=== PATIENT | male | born 1960 | race Two or more races ===

== ENCOUNTER 2023-11-03 02:54 | Inpatient (IN) | payer OTHER ==
[~2023-11-03] VITALS: Ht 177.8 cm; Wt 98.2 kg
[2023-11-03 04:54] LABS: BASOPHILS % (AUTO) 0.4 % (0.0-2.0); EOSINOPHILS % (AUTO) 0 % (1.0-6.0); HEMOGLOBIN 11.1 g/dL (13.5-17.5); LYMPHOCYTES # (AUTO) 1.3 K/uL (1.0-4.8); LYMPHOCYTES % (AUTO) 18.6 % (22.0-44.0); MEAN CORPUSCULAR HEMOGLOBIN 28.6 pg (26.0-34.0); MEAN CORPUSCULAR HGB CONC 34.7 G/dL (31.0-37.0); MEAN CORPUSCULAR VOLUME 82 fL (80-100); MONOCYTES # (AUTO) 0.6 K/uL (0.1-1.0); MONOCYTES % (AUTO) 8.8 % (2.0-9.0); NEUTROPHILS # (AUTO) 5.1 K/uL (1.8-7.7); NEUTROPHILS % (AUTO) 72.2 % (40.0-70.0); PLATELET COUNT (AUTO) 169 K/uL (150-450); RED BLOOD CELL COUNT(AUTO) 3.89 MIL/uL (4.50-5.90); RED CELL DISTRIBUTION WIDTH 14.8 % (11.5-14.5); WHITE BLOOD COUNT (AUTO) 7.1 K/uL (4.5-11.0)
[2023-11-03 05:07] LABS: LACTIC ACID 0.7 mmol/L (0.4-2.0); TROPONIN I-HIGH SENSITIVITY 6 ng/L (<76)
[2023-11-03 05:10] LABS: AMMONIA < 10 umol/L (11-32)
[2023-11-03 05:54] LABS: ANION GAP 11 mmol/L (8-16); CALCIUM, TOTAL 8.7 mg/dL (8.8-10.5); CARBON DIOXIDE 25 mmol/L (22-29); CHLORIDE 100 mmol/L (98-107); CREATININE 0.99 mg/dL (0.60-1.30); GLOMERULAR FILTR. RATE CALC > 60 mL/min (>60); GLUCOSE,RANDOM 212 mg/dL (70-110); POTASSIUM 3.2 mmol/L (3.5-5.1); SODIUM SERUM 136 mmol/L (136-145); UREA NITROGEN, BLOOD 19 mg/dL (7-18)
[2023-11-03] MEDS: POTASSIUM CHLORIDE 20 MEQ ER TABLET PO ONE (06:20)
[2023-11-03] MEDS: ACETAMINOPHEN 325 MG TABLET PO ONE (06:21)
[2023-11-03] MEDS: KETOROLAC TROMETHAMINE 30 MG/ML VIAL IVP ONE (06:57)
[2023-11-03 07:19] LABS: APPEARANCE,URINE CLEAR (CLEAR); BILIRUBIN,URINE NEGATIVE (NEGATIVE); COLOR,URINE YELLOW (YELLOW); GLUCOSE, URINE (UA) TRACE mg/dL (NEGATIVE); KETONES,URINE 40-60 mg/dL (NEGATIVE); LEUKOCYTE ESTERASE ,URINE LARGE (NEGATIVE); NITRATE,URINE NEGATIVE (NEGATIVE); OCCULT BLOOD,URINE TRACE (NEGATIVE); PROTEIN,URINE 30-70 mg/dL (NEGATIVE); SPECIFIC GRAVITIY, URINE 1.025 (1.003-1.030); UROBILINOGEN,URINE <=1.0 mg/dL (<=1.0)
[2023-11-03 07:26] LABS: ALCOHOL, URINE DRUG SCREEN NEGATIVE (NEGATIVE); AMPHET/METH SCREEN,URINE NEGATIVE (NEGATIVE); BARBITURATE SCREEN, URINE NEGATIVE (NEGATIVE); BENZODIAZEPINES SCREEN,URINE NEGATIVE (NEGATIVE); CANNABINOID SCREEN,URINE NEGATIVE (NEGATIVE); COCAINE SCREEN,URINE NEGATIVE (NEGATIVE); METHADONE SCREEN, URINE NEGATIVE (NEGATIVE); OPIATE SCREEN,URINE NEGATIVE (NEGATIVE); PHENCYCLIDINE SCREEN,URINE NEGATIVE (NEGATIVE)
[2023-11-03 07:34] LABS: BACTERIA,URINE Moderate /HPF (None Seen); RBC,URINE 0-2 /HPF (0-2); WBC,URINE >100 /HPF (0-5)
[2023-11-03 11:46] VITALS: BP 153/78; PULSE 80; RESP 19; TEMP 98.4; O2SAT 96
[2023-11-03] MEDS ORDERED: LOSA-382 PO (16:18)
[2023-11-03] MEDS ORDERED: EMPA25TA3 PO (16:18)
[2023-11-03] MEDS ORDERED: INSU100V37 SQ (16:18)
[2023-11-03] MEDS ORDERED: AMLO-258 PO (16:18)
[2023-11-03] MEDS ORDERED: METF-1211 PO (16:18)
[2023-11-03] MEDS ORDERED: DOCU-385 PO (16:18)
[2023-11-03] MEDS ORDERED: FOLI-130 PO (16:18)
[2023-11-03] MEDS ORDERED: DULA1.5P SQ (16:18)
[2023-11-03] MEDS ORDERED: BRIM5DRO9 OU (16:18)
[2023-11-03] MEDS ORDERED: LACT10SO10 PO (16:18)
[2023-11-03] MEDS ORDERED: XALA2.5OS OU (16:18)
[2023-11-03] MEDS ORDERED: FURO20 PO (16:18)
[2023-11-03] MEDS ORDERED: ACET650S24 PR (16:18)
[2023-11-03 20:10] VITALS: BP 163/87; PULSE 93; RESP 16; TEMP 97.5; O2SAT 97
[2023-11-03] MEDS: ACETAMINOPHEN 325 MG TABLET PO PRN (20:39)
[2023-11-03] MEDS: INSULIN LISPRO 100 UNITS/ML SQ PRN (21:53)
[2023-11-03] MEDS ORDERED: DEXTROSE 50%-WATER 25 GM/50 ML SYRINGE IVP PRN (22:00)
[2023-11-04 03:20] LABS: GLUCOMETER DEV NAME(LOC) 6S.2; GLUCOSE,POINT OF CARE 201 MG/DL (70-110)
[2023-11-04 04:30] VITALS: BP 159/91; PULSE 98; RESP 16; TEMP 97.5; O2SAT 96
[2023-11-04 07:00] LABS: GLUCOMETER DEV NAME(LOC) 6S.2; GLUCOSE,POINT OF CARE 206 MG/DL (70-110)
[2023-11-04 10:27] VITALS: BP 161/92; PULSE 86; RESP 18; TEMP 97.5; O2SAT 98
[2023-11-04] MEDS ORDERED: ACETAMINOPHEN 650 MG RECTAL SUPPOSITORY PR PRN (12:45)
[2023-11-04] MEDS ORDERED: MORPHINE SULFATE 2 MG/ML SYRINGE IVP PRN (12:45)
[2023-11-04] MEDS ORDERED: ALBUTEROL SULFATE 2.5 MG/0.5 ML NEB SOLUTION NEB PRN (12:45)
[2023-11-04] MEDS ORDERED: BISACODYL 10 MG RECTAL RECTAL SUPPOSITORY PR PRN (12:45)
[2023-11-04] MEDS ORDERED: ZOLPIDEM TARTRATE 5 MG TABLET PO PRN (12:45)
[2023-11-04] MEDS ORDERED: ACETAMINOPHEN 325 MG TABLET PO PRN (12:45)
[2023-11-04] MEDS ORDERED: POTASSIUM CHL 10 MEQ/WATER 50 ML IV PRN (12:45)
[2023-11-04] MEDS ORDERED: MAGNESIUM HYDROXIDE SUSPENSION 30 ML UDCUP PO PRN (12:45)
[2023-11-04] MEDS ORDERED: FUROSEMIDE 40 MG/4 ML VIAL IVP ONE (12:45)
[2023-11-04] MEDS ORDERED: ONDANSETRON HCL 4 MG/2 ML VIAL IVP PRN (12:45)
[2023-11-04] MEDS ORDERED: IPRATROPIUM BROMIDE 0.5 MG/2.5 ML NEB SOLUTION NEB PRN (12:45)
[2023-11-04 12:46] LABS: GLUCOMETER DEV NAME(LOC) 6S.2; GLUCOSE,POINT OF CARE 204 MG/DL (70-110)
[2023-11-04] MEDS: AmLODIPine BESYLATE 10 MG TABLET PO SCH (14:09)
[2023-11-04] MEDS: FUROSEMIDE 40 MG TABLET PO ONE (14:09)
[2023-11-04] MEDS: POTASSIUM CHLORIDE 20 MEQ ER TABLET PO PRN (14:10)
[2023-11-04] MEDS: HEPARIN SODIUM,PORCINE 5,000 UNITS/ML VIAL SQ SCH (16:41)
[2023-11-04 17:51] LABS: GLUCOMETER DEV NAME(LOC) 6S.2; GLUCOSE,POINT OF CARE 183 MG/DL (70-110)
[2023-11-04] MEDS: MetFORMIN HCL 500 MG TABLET PO SCH (18:29)
[2023-11-04 21:00] VITALS: BP 178/100; PULSE 81; RESP 18; TEMP 97.5; O2SAT 95
[2023-11-04] MEDS ORDERED: FUROSEMIDE 20 MG TABLET PO SCH (21:00)
[2023-11-04] MEDS: LATANOPROST 0.005% 2.5 ML OPHTHALMIC SOLUTION OU SCH (21:30)
[2023-11-04] MEDS: DOCUSATE SODIUM 100 MG CAPSULE PO SCH (21:30)
[2023-11-04] MEDS: BRIMONIDINE TARTRATE 0.2% 5 ML OPHTHALMIC SOLUTION OU SCH (21:30)
[2023-11-04 22:00] VITALS: BP 142/77; PULSE 76; RESP 18; O2SAT 95
[2023-11-04 22:35] LABS: GLUCOMETER DEV NAME(LOC) 6S.2; GLUCOSE,POINT OF CARE 162 MG/DL (70-110)
[2023-11-05 06:00] VITALS: BP 190/95; PULSE 97; RESP 18; O2SAT 98
[2023-11-05] MEDS: HydrALAZINE HCL 25 MG TABLET PO ONE ×2 (06:22→10:34)
[2023-11-05 07:16] LABS: GLUCOMETER DEV NAME(LOC) 6S.2; GLUCOSE,POINT OF CARE 182 MG/DL (70-110)
[2023-11-05 08:19] VITALS: BP 165/88
[2023-11-05] MEDS: HydrALAZINE HCL 25 MG TABLET PO SCH (08:23)
[2023-11-05] MEDS: LEVOFLOXACIN 750 MG TABLET PO SCH (08:23)
[2023-11-05] MEDS: HYDROCODONE/ACETAMINOPHEN 5-325 MG TABLET PO PRN (08:23)
[2023-11-05] MEDS: LOSARTAN POTASSIUM 50 MG TABLET PO SCH (08:24)
[2023-11-05] MEDS: FOLIC ACID 1 MG TABLET PO SCH (08:25)
[2023-11-05] MEDS: EMPAGLIFLOZIN 25 MG TABLET PO SCH (08:25)
[2023-11-05] MEDS: PANTOPRAZOLE SODIUM 40 MG DR TABLET PO SCH (08:25)
[2023-11-05] MEDS: LACTULOSE 20 GM/30 ML SOLUTION UDCUP PO SCH (08:25)
[2023-11-05] MEDS: FUROSEMIDE 20 MG TABLET PO SCH (08:26)
[2023-11-05] MEDS ORDERED: FUROSEMIDE 20 MG/2 ML VIAL IVP SCH (09:00)
[2023-11-05 10:35] VITALS: BP 149/99
[2023-11-05 11:02] LABS: BASOPHILS % (AUTO) 1.6 % (0.0-2.0); EOSINOPHILS % (AUTO) 0.1 % (1.0-6.0); HEMATOCRIT 38.3 % (41-53); HEMOGLOBIN 12.8 g/dL (13.5-17.5); LYMPHOCYTES # (AUTO) 1.4 K/uL (1.0-4.8); LYMPHOCYTES % (AUTO) 24.1 % (22.0-44.0); MEAN CORPUSCULAR HEMOGLOBIN 27.8 pg (26.0-34.0); MEAN CORPUSCULAR HGB CONC 33.4 G/dL (31.0-37.0); MEAN CORPUSCULAR VOLUME 83 fL (80-100); MONOCYTES # (AUTO) 0.4 K/uL (0.1-1.0); MONOCYTES % (AUTO) 6.2 % (2.0-9.0); NEUTROPHILS # (AUTO) 3.9 K/uL (1.8-7.7); PLATELET COUNT (AUTO) 227 K/uL (150-450); RED CELL DISTRIBUTION WIDTH 14.7 % (11.5-14.5); WHITE BLOOD COUNT (AUTO) 5.8 K/uL (4.5-11.0)
[2023-11-05 11:16] LABS: ANION GAP 12 mmol/L (8-16); CALCIUM, TOTAL 9.4 mg/dL (8.8-10.5); CARBON DIOXIDE 27 mmol/L (22-29); CHLORIDE 98 mmol/L (98-107); CREATININE 1.04 mg/dL (0.60-1.30); GLOMERULAR FILTR. RATE CALC > 60 mL/min (>60); GLUCOSE,RANDOM 184 mg/dL (70-110); SODIUM SERUM 137 mmol/L (136-145); UREA NITROGEN, BLOOD 20 mg/dL (7-18)
[2023-11-05 11:22] LABS: ALANINE AMINOTRANSFERASE 17 U/L (12-78); ALBUMIN 3.6 g/dL (3.4-5.0); ALKALINE PHOSPHATASE 85 U/L (46-116); ASPARTATE AMINOTRANSFERASE 23 U/L (15-37); TOTAL PROTEIN, SERUM 9.2 g/dL (6.4-8.2)
[2023-11-05 12:00] LABS: GLUCOMETER DEV NAME(LOC) 6S.2; GLUCOSE,POINT OF CARE 174 MG/DL (70-110)
[2023-11-05] MEDS ORDERED: HydrALAZINE HCL 50 MG TABLET PO SCH (21:00)
[2023-11-11] MEDS ORDERED: MISC MED-CONVERTED FROM AMBULATORY (Dulaglutide (Trulicity) 1.5 MG) SQ SCH (09:00)
== END 2023-11-05 18:50 | DRG 728 ==
LOC: EMS 02:54 → EDH 08:30 → 6N 10:56
PROVIDERS: ADMIT Internal Medicine; ATTEND Internal Medicine
DX: N45.1 Epididymitis (principal); G93.40 Encephalopathy, unspecified; I10 Essential (primary) hypertension; E11.9 Type 2 diabetes mellitus without complications; K76.0 Fatty (change of) liver, not elsewhere classified; G24.01 Drug induced subacute dyskinesia; F32.9 Major depressive disorder, single episode, unspecified; G89.29 Other chronic pain; M54.9 Dorsalgia, unspecified; E78.5 Hyperlipidemia, unspecified; R16.2 Hepatomegaly with splenomegaly, not elsewhere classified; N31.9 Neuromuscular dysfunction of bladder, unspecified; F41.9 Anxiety disorder, unspecified; E87.6 Hypokalemia; Z88.0 Allergy status to penicillin; Z89.612 Acquired absence of left leg above knee
CPT/HCPCS: 70450; 76870; 80048; 80053; 80307; 81001; 82140; 82962; 83605; 84132; 84484; 85025; 87086; 87186; 93971; 99285; J1644; J1885; J1940

== ENCOUNTER 2024-07-30 03:40 | Inpatient (IN) | payer OTHER ==
[~2024-07-30] VITALS: Ht 188 cm; Wt 113.6 kg
[~2024-07-30 03:40] MED LIST: ACET650S24 PR; AMLO-258 PO; BRIM5DRO9 OU; DOCU-385 PO; DULA1.5P SQ; EMPA25TA3 PO; FOLI-130 PO; FURO20TA5 PO; INSU100V37 SQ; LACT10SO10 PO; LOSA-382 PO; METF-1211 PO; XALA2.5OS OU
[2024-07-30] MEDS ORDERED: ACETAMINOPHEN 500 MG TABLET PO ONE (03:45)
[2024-07-30] MEDS ORDERED: SERT-162 PO (04:16)
[2024-07-30] MEDS ORDERED: LIDO5CRE26 TP (04:16)
[2024-07-30] MEDS ORDERED: HYDR50CA7 PO (04:16)
[2024-07-30] MEDS ORDERED: HYDR25TA84 PO (04:16)
[2024-07-30] MEDS ORDERED: PREG50 PO (04:16)
[2024-07-30] MEDS ORDERED: CARV-165 PO (04:16)
[2024-07-30] MEDS ORDERED: ROSU20TA98 PO (04:16)
[2024-07-30] MEDS ORDERED: INSU100V SQ (04:16)
[2024-07-30] MEDS ORDERED: TAMS0.4C94 PO (04:16)
[2024-07-30] MEDS ORDERED: SODIUM CHLORIDE 0.9% 100 ML ONE (04:39)
[2024-07-30] MEDS ORDERED: IOHEXOL 350 MG/ML 100 ML VIAL ONE (04:39)
[2024-07-30] MEDS: ONDANSETRON HCL 4 MG/2 ML VIAL IVP ONE (05:08)
[2024-07-30] MEDS: MORPHINE SULFATE 2 MG/ML SYRINGE IVP ONE (05:08)
[2024-07-30 05:50] LABS: BASOPHILS % (AUTO) 0.2 % (0.0-2.0); EOSINOPHILS % (AUTO) 1.4 % (1.0-6.0); HEMATOCRIT 46.2 % (41-53); LYMPHOCYTES % (AUTO) 20.1 % (22.0-44.0); MEAN CORPUSCULAR HEMOGLOBIN 28.2 pg (26.0-34.0); MEAN CORPUSCULAR HGB CONC 34.5 G/dL (31.0-37.0); MEAN CORPUSCULAR VOLUME 82 fL (80-100); MONOCYTES # (AUTO) 0.8 K/uL (0.1-1.0); MONOCYTES % (AUTO) 8.3 % (2.0-9.0); NEUTROPHILS # (AUTO) 7.1 K/uL (1.8-7.7); PLATELET COUNT (AUTO) 208 K/uL (150-450); RED BLOOD CELL COUNT(AUTO) 5.66 MIL/uL (4.50-5.90); RED CELL DISTRIBUTION WIDTH 13.7 % (11.5-14.5); WHITE BLOOD COUNT (AUTO) 10.1 K/uL (4.5-11.0)
[2024-07-30 05:54] LABS: ANION GAP 8 mmol/L (8-16); CALCIUM, TOTAL 8.3 mg/dL (8.8-10.5); CARBON DIOXIDE 27 mmol/L (22-29); CHLORIDE 103 mmol/L (98-107); CREATININE 1.76 mg/dL (0.60-1.30); GLOMERULAR FILTR. RATE CALC 40 mL/min (>60); GLUCOSE,RANDOM 195 mg/dL (70-110); POTASSIUM 4.2 mmol/L (3.5-5.1); SODIUM SERUM 138 mmol/L (136-145); UREA NITROGEN, BLOOD 28 mg/dL (7-18)
[2024-07-30] MEDS ORDERED: ACETAMINOPHEN 325 MG TABLET PO PRN (06:00)
[2024-07-30] MEDS ORDERED: DEXTROSE 50%-WATER 25 GM/50 ML SYRINGE IVP PRN (06:00)
[2024-07-30] MEDS ORDERED: ONDANSETRON HCL 4 MG/2 ML VIAL IVP PRN (06:00)
[2024-07-30 06:01] LABS: ALANINE AMINOTRANSFERASE 20 U/L (12-78); ALBUMIN 3.5 g/dL (3.4-5.0); ALKALINE PHOSPHATASE 79 U/L (46-116); ASPARTATE AMINOTRANSFERASE 13 U/L (15-37); BILIRUBIN,TOTAL 1.4 mg/dL (0.1-1.0); CREATINE KINASE, TOTAL ONLY 41 U/L (39-308); LIPASE 24 U/L (16-77)
[2024-07-30 06:07] LABS: TROPONIN I-HIGH SENSITIVITY 5 ng/L (<76)
[2024-07-30 06:09] LABS: B-TYPE NATRIURETIC PEPTIDE < 5 pg/mL (0-100)
[2024-07-30] MEDS: INSULIN LISPRO 100 UNITS/ML SQ PRN (08:07)
[2024-07-30] MEDS: FAMOTIDINE 20 MG TABLET PO SCH (08:12)
[2024-07-30 08:15] LABS: GLUCOMETER DEV NAME(LOC) ERT.7; GLUCOSE,POINT OF CARE 212 MG/DL (70-110)
[2024-07-30] MEDS: DOCUSATE SODIUM 100 MG CAPSULE PO SCH (08:18)
[2024-07-30] MEDS ORDERED: BISMUTH SUBSALICYLATE 525 MG/30 ML SUSPENSION UDCUP PO PRN (09:00)
[2024-07-30 09:52] VITALS: BP 128/86; PULSE 81; RESP 20; TEMP 97.5; O2SAT 96
[2024-07-30] MEDS: ASPIRIN 81 MG CHEWABLE TABLET PO SCH (10:33)
[2024-07-30] MEDS: HYDROCODONE/ACETAMINOPHEN 5-325 MG TABLET PO PRN (10:33)
[2024-07-30] MEDS: ATORVASTATIN CALCIUM 20 MG TABLET PO SCH (10:34)
[2024-07-30] MEDS: SODIUM CHLORIDE 0.9% 1,000 ML IV ONE (10:41)
[2024-07-30 12:00] VITALS: BP 125/80; PULSE 70; RESP 18; TEMP 97.8; O2SAT 96
[2024-07-30 13:01] LABS: GLUCOMETER DEV NAME(LOC) 5N.1D; GLUCOSE,POINT OF CARE 210 MG/DL (70-110)
[2024-07-30 16:30] VITALS: BP 107/64; PULSE 82; RESP 19; TEMP 98; O2SAT 95
[2024-07-30 18:06] LABS: GLUCOMETER DEV NAME(LOC) 5N.1D; GLUCOSE,POINT OF CARE 182 MG/DL (70-110)
[2024-07-30 20:30] VITALS: BP 131/76; PULSE 77; RESP 19; TEMP 97.7; O2SAT 96
[2024-07-30 23:26] LABS: GLUCOMETER DEV NAME(LOC) 5N.1D; GLUCOSE,POINT OF CARE 190 MG/DL (70-110)
[2024-07-30 23:28] VITALS: BP 133/79; PULSE 73; RESP 19; TEMP 97.9; O2SAT 97
[2024-07-31 03:54] VITALS: BP 125/83; PULSE 75; RESP 19; TEMP 98.1; O2SAT 95
[2024-07-31 07:42] VITALS: BP 113/65; PULSE 74; RESP 19; TEMP 98.1; O2SAT 97
[2024-07-31 07:49] LABS: BASOPHILS % (AUTO) 0.8 % (0.0-2.0); CALCIUM, TOTAL 8.1 mg/dL (8.8-10.5); CREATININE 1.27 mg/dL (0.60-1.30); EOSINOPHILS % (AUTO) 1.8 % (1.0-6.0); HEMATOCRIT 42.5 % (41-53); HEMOGLOBIN 14.6 g/dL (13.5-17.5); LYMPHOCYTES # (AUTO) 1.2 K/uL (1.0-4.8); LYMPHOCYTES % (AUTO) 16.5 % (22.0-44.0); MEAN CORPUSCULAR HEMOGLOBIN 28.3 pg (26.0-34.0); MEAN CORPUSCULAR HGB CONC 34.4 G/dL (31.0-37.0); MEAN CORPUSCULAR VOLUME 82 fL (80-100); MONOCYTES # (AUTO) 0.8 K/uL (0.1-1.0); MONOCYTES % (AUTO) 10.3 % (2.0-9.0); NEUTROPHILS # (AUTO) 5.2 K/uL (1.8-7.7); NEUTROPHILS % (AUTO) 70.6 % (40.0-70.0); PLATELET COUNT (AUTO) 157 K/uL (150-450); POTASSIUM 4.4 mmol/L (3.5-5.1); RED BLOOD CELL COUNT(AUTO) 5.17 MIL/uL (4.50-5.90); WHITE BLOOD COUNT (AUTO) 7.3 K/uL (4.5-11.0)
[2024-07-31 08:56] LABS: GLUCOMETER DEV NAME(LOC) 5N.1D; GLUCOSE,POINT OF CARE 172 MG/DL (70-110)
[2024-07-31 12:07] VITALS: BP 119/55; PULSE 72; RESP 19; TEMP 97.9; O2SAT 98
[2024-07-31 12:21] LABS: GLUCOMETER DEV NAME(LOC) 5N.1D; GLUCOSE,POINT OF CARE 182 MG/DL (70-110)
[2024-07-31 15:54] VITALS: BP 133/76; PULSE 75; RESP 18; TEMP 97.7; O2SAT 98
[2024-07-31 17:10] LABS: GLUCOMETER DEV NAME(LOC) 5S.2D; GLUCOSE,POINT OF CARE 157 MG/DL (70-110)
[2024-07-31 20:45] VITALS: BP 154/67; PULSE 77; RESP 19; TEMP 97.2; O2SAT 97
[2024-07-31 23:43] VITALS: BP 143/65; PULSE 74; RESP 19; TEMP 98.4; O2SAT 95
[2024-08-01] VITALS (9 sets, daily range): BP systolic 145–201; BP diastolic 61–118; PULSE 75–79; RESP 18–19; TEMP 97.8–98.2; O2SAT 96–99
[2024-08-01 06:25] LABS: GLUCOMETER DEV NAME(LOC) 5N.1D; GLUCOSE,POINT OF CARE 191 MG/DL (70-110)
[2024-08-01 06:33] LABS: BASOPHILS % (AUTO) 0.3 % (0.0-2.0); EOSINOPHILS % (AUTO) 1.7 % (1.0-6.0); HEMATOCRIT 39.2 % (41-53); HEMOGLOBIN 13.6 g/dL (13.5-17.5); LYMPHOCYTES # (AUTO) 1.3 K/uL (1.0-4.8); LYMPHOCYTES % (AUTO) 19.9 % (22.0-44.0); MEAN CORPUSCULAR HEMOGLOBIN 28.1 pg (26.0-34.0); MEAN CORPUSCULAR HGB CONC 34.6 G/dL (31.0-37.0); MEAN CORPUSCULAR VOLUME 81 fL (80-100); MONOCYTES # (AUTO) 0.6 K/uL (0.1-1.0); NEUTROPHILS # (AUTO) 4.5 K/uL (1.8-7.7); NEUTROPHILS % (AUTO) 69.1 % (40.0-70.0); PLATELET COUNT (AUTO) 143 K/uL (150-450); RED BLOOD CELL COUNT(AUTO) 4.83 MIL/uL (4.50-5.90); RED CELL DISTRIBUTION WIDTH 13.6 % (11.5-14.5); WHITE BLOOD COUNT (AUTO) 6.5 K/uL (4.5-11.0)
[2024-08-01 06:48] LABS: ANION GAP 6 mmol/L (8-16); CALCIUM, TOTAL 8.8 mg/dL (8.8-10.5); CARBON DIOXIDE 28 mmol/L (22-29); CHLORIDE 107 mmol/L (98-107); CREATININE 0.98 mg/dL (0.60-1.30); GLOMERULAR FILTR. RATE CALC > 60 mL/min (>60); GLUCOSE,RANDOM 194 mg/dL (70-110); POTASSIUM 4.3 mmol/L (3.5-5.1); SODIUM SERUM 141 mmol/L (136-145); UREA NITROGEN, BLOOD 20 mg/dL (7-18)
[2024-08-01 11:46] LABS: GLUCOMETER DEV NAME(LOC) 5S.2D; GLUCOSE,POINT OF CARE 199 MG/DL (70-110)
[2024-08-01 11:46] LABS: GLUCOMETER DEV NAME(LOC) 5S.2D; GLUCOSE,POINT OF CARE 179 MG/DL (70-110)
[2024-08-01] MEDS ORDERED: NITR0.4T52 SL (16:51)
[2024-08-01] MEDS ORDERED: INSU100I24 SQ (16:51)
[2024-08-01] MEDS ORDERED: FURO20TA5 PO (16:51)
[2024-08-01] MEDS ORDERED: ACETAMINOPHEN 650 MG RECTAL SUPPOSITORY PR PRN (17:00)
[2024-08-01] MEDS ORDERED: NITROGLYCERIN 0.4 MG SUBLINGUAL TABLET #25 SL PRN (17:00)
[2024-08-01] MEDS: TAMSULOSIN HCL 0.4 MG CAPSULE PO SCH (18:16)
[2024-08-01] MEDS: AmLODIPine BESYLATE 10 MG TABLET PO SCH (18:16)
[2024-08-01] MEDS: MetFORMIN HCL 500 MG TABLET PO SCH (18:16)
[2024-08-01] MEDS: LOSARTAN POTASSIUM 50 MG TABLET PO SCH (18:16)
[2024-08-01] MEDS: FUROSEMIDE 20 MG TABLET PO SCH (18:16)
[2024-08-01 18:51] LABS: GLUCOMETER DEV NAME(LOC) 5N.1D; GLUCOSE,POINT OF CARE 176 MG/DL (70-110)
[2024-08-01] MEDS: PREGABALIN 50 MG CAPSULE PO SCH (20:31)
[2024-08-01] MEDS: carvediloL 6.25 MG TABLET PO SCH (20:31)
[2024-08-01] MEDS: HydrALAZINE HCL 25 MG TABLET PO SCH (20:31)
[2024-08-01] MEDS: SERTRALINE HCL 100 MG TABLET PO SCH (20:32)
[2024-08-01] MEDS: LATANOPROST 0.005% 2.5 ML OPHTHALMIC SOLUTION OU SCH (20:35)
[2024-08-01] MEDS: BRIMONIDINE TARTRATE 0.2% 5 ML OPHTHALMIC SOLUTION OU SCH (20:35)
[2024-08-01] MEDS ORDERED: [UNRECOGNIZED DRUG - OTHER] TP SCH (21:00)
[2024-08-01] MEDS: CloNIDine HCL 0.1 MG TABLET PO ONE (22:32)
[2024-08-01 23:36] LABS: GLUCOMETER DEV NAME(LOC) 5N.1D; GLUCOSE,POINT OF CARE 161 MG/DL (70-110)
[2024-08-02 02:07] LABS: HEPATITIS C AB (EIA) Non Reactive (Non Reactive)
[2024-08-02 04:02] VITALS: BP 114/56; PULSE 74; RESP 18; TEMP 97.7; O2SAT 96
[2024-08-02 08:10] LABS: BASOPHILS % (AUTO) 0.4 % (0.0-2.0); EOSINOPHILS % (AUTO) 1.4 % (1.0-6.0); HEMOGLOBIN 13.5 g/dL (13.5-17.5); LYMPHOCYTES # (AUTO) 1.5 K/uL (1.0-4.8); LYMPHOCYTES % (AUTO) 25.2 % (22.0-44.0); MEAN CORPUSCULAR HEMOGLOBIN 28.1 pg (26.0-34.0); MEAN CORPUSCULAR HGB CONC 34.7 G/dL (31.0-37.0); MEAN CORPUSCULAR VOLUME 81 fL (80-100); MONOCYTES # (AUTO) 0.4 K/uL (0.1-1.0); MONOCYTES % (AUTO) 6.6 % (2.0-9.0); NEUTROPHILS % (AUTO) 66.4 % (40.0-70.0); PLATELET COUNT (AUTO) 138 K/uL (150-450); RED BLOOD CELL COUNT(AUTO) 4.81 MIL/uL (4.50-5.90); RED CELL DISTRIBUTION WIDTH 13.5 % (11.5-14.5)
[2024-08-02 08:26] LABS: ALANINE AMINOTRANSFERASE 15 U/L (12-78); ALKALINE PHOSPHATASE 67 U/L (46-116); ANION GAP 8 mmol/L (8-16); ASPARTATE AMINOTRANSFERASE 12 U/L (15-37); BILIRUBIN,TOTAL 1.2 mg/dL (0.1-1.0); CALCIUM, TOTAL 8.6 mg/dL (8.8-10.5); CARBON DIOXIDE 28 mmol/L (22-29); CHLORIDE 106 mmol/L (98-107); CREATININE 0.94 mg/dL (0.60-1.30); GLOMERULAR FILTR. RATE CALC > 60 mL/min (>60); GLUCOSE,RANDOM 185 mg/dL (70-110); POTASSIUM 4.2 mmol/L (3.5-5.1); SODIUM SERUM 142 mmol/L (136-145); TOTAL PROTEIN, SERUM 7.1 g/dL (6.4-8.2); UREA NITROGEN, BLOOD 15 mg/dL (7-18)
[2024-08-02 08:28] VITALS: BP 138/92; PULSE 72; RESP 18; TEMP 98.6; O2SAT 97
[2024-08-02] MEDS: FOLIC ACID 1 MG TABLET PO SCH (08:55)
[2024-08-02] MEDS ORDERED: INSULIN DEGLUDEC SQ SCH (09:00)
[2024-08-02] MEDS ORDERED: ROSUVASTATIN CALCIUM 20 MG TABLET PO SCH (09:00)
[2024-08-02] MEDS: EMPAGLIFLOZIN 25 MG TABLET PO SCH (10:23)
[2024-08-02 11:15] LABS: GLUCOMETER DEV NAME(LOC) 5N.1D; GLUCOSE,POINT OF CARE 199 MG/DL (70-110)
[2024-08-02 12:00] VITALS: BP 162/82; PULSE 76; RESP 18; TEMP 98; O2SAT 96
[2024-08-02] MEDS: LACTULOSE 20 GM/30 ML SOLUTION UDCUP PO ONE (12:10)
[2024-08-02 14:31] LABS: GLUCOMETER DEV NAME(LOC) 5N.1D; GLUCOSE,POINT OF CARE 187 MG/DL (70-110)
[2024-08-02 15:33] VITALS: BP 135/78; PULSE 76; RESP 18; TEMP 98; O2SAT 96
[2024-08-02 20:00] VITALS: BP 95/61; PULSE 73; RESP 18; TEMP 97.9; O2SAT 94
[2024-08-02 22:10] LABS: GLUCOMETER DEV NAME(LOC) 5N.2C; GLUCOSE,POINT OF CARE 172 MG/DL (70-110)
[2024-08-02 22:11] LABS: GLUCOMETER DEV NAME(LOC) 5N.2C; GLUCOSE,POINT OF CARE 138 MG/DL (70-110)
[2024-08-03] VITALS: BP 101/58; PULSE 64; RESP 18; TEMP 97.7; O2SAT 99
[2024-08-03 04:00] VITALS: BP 144/88; PULSE 65; RESP 16; TEMP 97.5; O2SAT 100
[2024-08-03 05:41] LABS: GLUCOMETER DEV NAME(LOC) 5N.1D; GLUCOSE,POINT OF CARE 159 MG/DL (70-110)
[2024-08-03 08:46] VITALS: BP 138/77; PULSE 71
[2024-08-03 11:58] VITALS: BP 128/66; PULSE 67; RESP 17; TEMP 98.6; O2SAT 97
[2024-08-03 15:10] LABS: GLUCOMETER DEV NAME(LOC) 5N.1D; GLUCOSE,POINT OF CARE 190 MG/DL (70-110)
[2024-08-03 16:04] VITALS: BP 134/87; PULSE 65; RESP 18; TEMP 97.9; O2SAT 99
[2024-08-03 23:36] LABS: GLUCOMETER DEV NAME(LOC) 5N.1D; GLUCOSE,POINT OF CARE 173 MG/DL (70-110)
[2024-08-08] MEDS ORDERED: MISC MED-CONVERTED FROM AMBULATORY (Dulaglutide (Trulicity) 1.5 MG) SQ SCH (09:00)
== END 2024-08-03 19:45 | DRG 74 ==
LOC: EMS 03:40 → EDH 06:33 → 5S 09:30
PROVIDERS: ADMIT Internal Medicine; ATTEND Internal Medicine
PROC: 05HY33Z Insertion of Infusion Device into Upper Vein, Percutaneous Approach (ICD-10-PCS; principal; 2024-07-30)
PROC: B54NZZA Ultrasonography of Left Upper Extremity Veins, Guidance (ICD-10-PCS; 2024-07-30)
DX: G90.89 Other disorders of autonomic nervous system (principal); N17.9 Acute kidney failure, unspecified; R19.7 Diarrhea, unspecified; I10 Essential (primary) hypertension; E11.9 Type 2 diabetes mellitus without complications; E78.00 Pure hypercholesterolemia, unspecified; E66.9 Obesity, unspecified; F32.A Depression, unspecified; F41.9 Anxiety disorder, unspecified; Z86.73 Personal history of transient ischemic attack (TIA), and cerebral infarction without residual deficits; Z89.612 Acquired absence of left leg above knee; Z88.0 Allergy status to penicillin; Z79.84 Long term (current) use of oral hypoglycemic drugs; Z79.899 Other long term (current) drug therapy; Z79.4 Long term (current) use of insulin; Z68.32 Body mass index [BMI] 32.0-32.9, adult
CPT/HCPCS: 70450; 71045; 72125; 74176; 80048; 80053; 80076; 82550; 82962; 83690; 83735; 83880; 84484; 85025; 86803; 87340; 93005; 93306; 93880; 96374; 96375; 97162; 99285; J1815; J2270; J2405; J7030; J7050; 36415-L1; 36415-TC